=== PATIENT | male | born 1965 | race Caucasian/White ===

== ENCOUNTER → 2021-08-13 | Outpatient (CLI) | payer OTHER ==
[~2021-08-13] MED LIST: ASPIRIN CHEWABL81 MG PO; CLARITIN 10MG T10 MG PO; EFFEXOR 37.537.5 MG PO; FLONASE ALLER15.8 ML; LISINOPRIL-HCT1 EAC1 PO; MOBIC15 MG PO; NEURONTIN800 MG PO; NORCO 5-325 TA1 EACH PO; PROZAC40 MG PO; RANEXA500 MG PO; REQUIP2 MG PO; SEROQUEL300 MG PO; TOPAMAX50 MG PO; VALIUM 5 MG TAB5 MG PO; WELLBUTRIN SR150 M1 PO
[2021-08-13 14:07] LABS: BUN/CREATININE RATIO 22 (0-10)
== END ==
LOC: LAB 11:51
PROVIDERS: Nurse Practitioner Family
DX: Z12.5 Encounter for screening for malignant neoplasm of prostate (principal); M25.562 Pain in left knee; I10 Essential (primary) hypertension; R07.9 Chest pain, unspecified; R94.31 Abnormal electrocardiogram [ECG] [EKG]
CPT/HCPCS: 36415; 71046; 73564; 80053; 80061; 83036; 84153; 84443; 93005

== ENCOUNTER → 2021-09-03 | Outpatient (CLI) | payer OTHER | LOC: RAD 11:11 | DX: M54.50 Low back pain, unspecified (principal); M47.816 Spondylosis without myelopathy or radiculopathy, lumbar region | CPT/HCPCS: 72110 ==